=== PATIENT | male | born 1985 | race Caucasian/White ===

== ENCOUNTER 2018-01-04 07:57 | Emergency (ER) | payer BC ==
--- OUTSIDE RECORDS SUMMARY | 2018-01-04 08:14 | XMS REPORT ---
:1985 External Reference #:[id number] Author Organization [facility] 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 Active Onset: 02/15/2017 Dislocations/sprains/strains Genaro Hernandez M.D. Active Family History Date Family Member(s) Problem(s) Comments : (age 56 Father due to Lung Years) Cancer,Type 2 Diabetes,Hepatitus Onset: (age 52 Mother Alive COPD, ASTHMA,ALLERGIES Years) Social History Type Date Description Comments Marital Status Lives With Occupation [employer] Cigarette Use Quit ETOH Use Currently consumes alcohol 5-10 DRINKS PER WEEK Smoking Patient is a former smoker QUIT 5 YEARS AGO Recreational Drug Use Denies Drug Use Daily Caffeine Patient consumes minimal amounts 1 CUP COFFEE PER DAY of caffeine Exercise Type/Frequency Exercises sporadically Allergies, Adverse Reactions, Alerts Date Description Reaction Status Severity Comments 04/19/2016 NKDA active Medications Medication Date Status Form Strength Qnty SIG Indications Ordering Provider Omeprazole 12/[address] 20mg 30cap take 1 K21.9 Gag, s capsule by Jody mouth once a e, MS, day [employer], CNM Hydroxyzine HCL 12/21 Active Tablets 25mg 30tab 1 tabs by R21 s mouth at hs Jody Caution may e, MS, cause [employer], drowsiness CNM Desloratadine 12/21 Active Tablets 5mg 30tab Take one in s morning Jody e, MS, [employer], CNM Ipratropium 02/08 Active Solution 0.5-2.5(3 270ml use every 6 Jamel, [place]/Albuter )mg/3ML hours as MD Milli ol Sulfate needed for shortness of breath. Ibuprofen Active Tablets 200mg 4 po q 8hrs Unknown / prn knee pain Montelukast Active Tablets 10mg 90tab take 1 Gagen, Sodium / s tablet by Jody mouth every e, MS, day [employer], CNM Ventolin HFA Active Aerosol 108(90Bas 54uni use 2 puffs Gag, e) ts every 6 Jody mcg/Act hours as e, MS, needed for [employer], shortness of CNM breath. Symbicort 09/09 Hx Aerosol 160-4.5mc 30.6g 2 Jamel, g/Act m inhalations MD Milli - two times a 12/21 day prn Omeprazole 03/[address] 40mg 90cap take 1 K21.9 s capsule Jody - daily e, MS, 12/21 [employer], CNM Prednisone 02/07 Hx Tablets 10mg 45tab Take 50 mg J45.51 , s on day 1-3 MD Alejandro - and then 04/19 decrease 10 mg every 3 days until completed. Today of 15 days. Flonase Allergy 02/07 Hx Suspension 50mcg/Act 1unit 1 spray to J30.89 Kheti, s both MD Alejandro - nostrils 04/19 Symbicort Hx Aerosol 160-4.5mc 30.6g 2 puff twice Kennedy, /0000 g/Act m a day Zenon White M.D. 09/09 Nebusal 00 Hx Nebulizer 3% as Needed Unknown /0000 Vital Signs Date Vital Result Comment 12/21/2017 BP Systolic Sitting Left Arm 110 mmHg BP Diastolic Sitting Left Arm 72 mmHg Body Temperature 99.0 F Heart Rate 74 /min reg Respiratory Rate 18 /min Height 72 inches 6'0" Weight 235.00 lb BMI (Body Mass Index) 31.9 kg/m2 BSA (Body Surface Area) 2.28 m2 [place] body weight in kilograms 81 O2 % BldC Oximetry 95 % ra 06/15/2017 BP Systolic Sitting Right Arm 130 mmHg BP Diastolic Sitting Right Arm 88 mmHg Heart Rate 71 /min Height 72 inches 6'0" Weight 22.00 lb BMI (Body Mass Index) 3.0 kg/m2 BSA (Body Surface Area) 0.83 m2 [place] body weight in kilograms 81 02/15/2017 BP Systolic Sitting Left Arm 132 mmHg BP Diastolic Sitting Left Arm 85 mmHg Height 72 inches 6'0" Weight 217.00 lb BMI (Body Mass Index) 29.4 kg/m2 BSA (Body Surface Area) 2.21 m2 [place] body weight in kilograms 81 07/19/2016 BP Systolic Sitting Right Arm 128 mmHg BP Diastolic Sitting Right Arm 72 mmHg Heart Rate 90 /min Height 72 inches 6'0" Weight 214.25 lb BMI (Body Mass Index) 29.1 kg/m2 BSA (Body Surface Area) 2.19 m2 [place] body weight in kilograms 81 O2 % BldC Oximetry 97 % 04/19/2016 BP Systolic 122 mmHg BP Diastolic 88 mmHg Heart Rate 80 /min Respiratory Rate 16 /min Height 72 inches 6'0" Weight 219.00 lb BMI (Body Mass Index) 29.7 kg/m2 BSA (Body Surface Area) 2.21 m2 [place] body weight in kilograms 81 O2 % BldC Oximetry 98 % 03/12/2015 BP Systolic Sitting Left Arm 118 mmHg BP Diastolic Sitting Left Arm 80 mmHg Heart Rate 63 /min Height 73 inches 6'1" Weight 218.00 lb BMI (Body Mass Index) 28.8 kg/m2 BSA (Body Surface Area) 2.23 m2 O2 % BldC Oximetry 97 % 02/07/2015 BP Systolic Sitting Left Arm 112 mmHg BP Diastolic Sitting Left Arm 84 mmHg Heart Rate 84 /min Height 71 inches 5'11" Weight 221.00 lb BMI (Body Mass Index) 30.8 kg/m2 BSA (Body Surface Area) 2.20 m2 O2 % BldC Oximetry 97 % Results Test Date Test Result H/L Range Note Comprehensive Metabolic Panel 04/21/2016 Glucose 93 mg/dL 74-106 1 BUN 11 mg/dL 7-18 1 Creatinine 1.0 mg/dL 0.6-1.3 1 Glom Filtration Rate, Estimate >60 mL/min >60 1 If >60 mL/min >60 1, 2 BUN/Creat 11.0 ratio 1 Sodium 145 mmol/L 136-145 1 Potassium 4.1 mmol/L 3.5-5.1 1 Chloride 107 mmol/L 98-107 1 Carbon Dioxide 28 mmol/L 21-32 1 Anion Gap 10 mEq/L 8-16 1 Calcium 8.7 mg/dL 8.5-10.1 1 Total Protein 7.1 g/dL 6.4-8.2 1 Albumin 4.4 g/dL 3.4-5.0 1 Globulin 2.7 g/dL 1.9-4.3 1 Alb/Glob 1.6 ratio 1 Bilirubin,Total 0.6 mg/dL 0.2-1.0 1 Sgot/Ast 17 U/L 15-37 1 SGPT/Alt 40 U/L 12-78 1 Alkaline Phosphatase 60 U/L 45-117 1 CBS W/Automated Diff 04/21/2016 White Blood Count 7.9 K/uL 3.4-10.5 1 Red Blood Count 5.79 M/uL 4.20-5.80 1 Hemoglobin 16.9 gm/dL 12.8-17.0 1 Hematocrit 49.5 % High 38.0-48.0 1 Mean Cell Volume 85.5 fl 80.0-96.0 1 Mean Corpuscular HGB 29.2 pg 27.0-33.0 1 Mean Corpuscular HGB Conc 34.1 g/dL 31.7-36.0 1 Platelet Count 262 K/uL 150-400 1 Red Cell Distri Width SD 40.7 fl 36-51 1 Red Cell Distri Width %CV 13.3 % 11.6-15.8 1 Mean Platelet Volume 10.7 fL High 6.6-10.6 1 Neut% 65.2 % 33.0-73.0 1 Lymph % 24.2 % 20.0-42.0 1 [place] % 8.7 % 0.0-10.0 1 Eo% 1.4 % 0.0-6.6 1 Bas% 0.5 % 0.0-1.1 1 Neut# 5.13 K/uL 1.8-7.0 1 Lymph # 1.90 K/uL 1.0-4.0 1 [place] # 0.68 K/uL 0.0-0.8 1 Eos # 0.11 K/uL 0.0-0.5 1 Baso # 0.04 K/uL 0.0-0.1 1 LDL Cholesterol Profile 04/21/2016 Cholesterol 121 mg/dL <200 1, 3 Triglycerides 37 mg/dL <150 1, 4 HDL Cholesterol 59 mg/dL >40 1, 5 LDL-Cholesterol 55 mg/dL < 100 1, 6 Laboratory test finding 04/21/2016 Slide Review . 1, 7 Allergens,Zone 1 02/07/2015 mRast Class (Text Only) See Note 8 D Pteronyssinus 0.39 ClassIkU/L High D Farinae Mite 0.38 ClassIkU/L High Cat Hair/Dander 6.58 ClassIVkU/L High Dog Hair/Dander 1.26 ClassIIkU/L High Blue[place] <0.10 Iezkw2kK/L B[place] Grass <0.10 Nfxqc1uB/L [place] Grass 0.10 Class0/IkU/L High Cockroach,Nepalese 0.20 Class0/IkU/L High Penicillium Not <0.10 Yrakx6xH/L Cladosporium Herbarum <0.10 Rxqfg5cS/L Apergillis Fumigatus Ige <0.10 Ddhza8lO/L Mucor Racemosus <0.10 Uglbw4oO/L Alternaria Tenuis 0.87 ClassIIkU/L High Stemphylium Bot <0.10 Wbaoc0qU/L Birch,White <0.10 Wmfcf7sC/L [place],White <0.10 Khhpu6pQ/L Elm,Nepalese (White) <0.10 Sfzhx9xL/L Skip,White <0.10 Dzuwy4nS/L Hazelnut Tree <0.10 Wqxbr4nM/L [place],White <0.10 Qxady9iC/L Rozel,White <0.10 Wavij2pW/L Leopold,[place] <0.10 Zdhob1xU/L Ragweed,Short/ <0.10 Kaire1lH/L Mugwort <0.10 Krjqg6iG/L Plantain,Urdu 0.11 Class0/IkU/L High Pigweed,Rough <0.10 Nsorr0kQ/L Sheep [place] (DO <0.10 Jwmvo2nL/L Nettle <0.10 Yewpl5aT/L Maple/Fowler Ige T001 <0.10 Jjgvx5tE/L 9 Laboratory test finding 02/07/2015 Immunoglobulin E,Total 96 IU/mL 0-100 10 1 K21.9 Z00.00 J45.50 J30.89 2 Note: Persistent reduction for 3 months or more in an eGFR <60 mL/min/1.73 m2 defines CKD. Patients with eGFR values >/=60 mL/min/1.73 m2 may also have CKD if evidence of persistent proteinuria is present. The original MDRD equation for estimated GFR is not valid for patients less than 18 years of age. Additional information may be found at www.kdoqi.org. 3 Reference Guidelines*: Desirable: ........... < 200 mg/dL Borderline High: ..... 200-239 mg/dL High: ................ >=240 mg/dL * The National Cholesterol Education Program (NCEP) 4 Reference Guidelines*: Normal: ............. < 150 mg/dL Borderline High: .... 150-199 mg/dL High: ............... 200-499 mg/dL Very High: .......... > 500 mg/dL * Source: National Cholesterol Education Program (NCEP) 5 Reference Guidelines*: Low HDL: ..... < 40 mg/dL Normal: ..... 40-60 mg/dL Desirable: ... > 60 mg/dL *The National Cholesterol Education Program(NCEP) 6 Reference Guidelines*: Optimal:........... <100 mg/dL Near Optimal....... 100-129 mg/dL Borderline High.... 130-159 mg/dL High............... 160-189 mg/dL Very High.......... >=190 mg/dL * Source: National Cholesterol Education Program (NCEP) 7 Instrument flagged sample for slide review. Less than 10% Bands seen, no other immature WBC's seen. RBC morphology essentially normal. Platelet estimate=NORMAL 8 Levels of Specific IgE Class Description of Class ----- < 0.10 0 Negative 0.10 - 0.31 0/I Equivocal/Low 0.32 - 0.55 I Low 0.56 - 1.40 II Moderate 1.41 - 3.90 III High 3.91 - 19.00 IV Very High 19.01 - 100.00 V Very High >100.00 Very High 9 Performed at: - [facility] [id number] Refractory Tile Helper: Maico Sherwood MD, Phone: [phone] Performed at: - [facility] [id number] Refractory Tile Helper: Thelma Negron MD, Phone: [phone] Test(s) [id number]-AyF Cockroach, Nepalese; 863313- N986-FfX [place] were developed and had performance characteristics determined by [facility]. These tests have not been cleared or approved by the U.S. Food and Drug Administration. The FDA has determined that such clearance or approval is not necessary. These tests are used for clinical purposes. These should not be regarded as investigational or for research. Procedures Date CPT Code Description Status 02/20/2015 12486 Bronchospasm Provocation Evaluation Multi Spirometric Completed Determinati 02/20/2015 16533 Spirometry Completed Encounters Type Date Location Provider CPT E/M Dx Office Visit 06/15/2017 Primary Care Office Genaro Hernandez, 29120 M25.561 10:00a M.D. Office Visit 02/15/2017 Primary Care Office Genaro Hernandez, [address] S39.012A 3:00p M.D. Office Visit 07/19/2016 [place] [address] G47.33 11:20a Office Visit 04/19/2016 [place] [address] J45.50 2:40p K21.9 J30.89 Office Visit 03/12/2015 2:00p [place] [address] J45.50 J30.89 K21.9 Office Visit 02/07/2015 2:45p [place] [address] J45.51 J30.89 Plan of Care Future Appointment(s):02/01/2018 2:00 pm - Alejandro Ceja MD at [facility]/17 /2018 - Mague Nunez, , [employer], CNMJ45.909 Unspecified asthma, uncomplicatedComments:Referral to Dr Ceja, using albuterol twice a day.I counseled Patient on need for daily anti-inflammatory drug (ICS).R21 Rash and other nonspecific skin eruptionNew Medication:Hydroxyzine HCL 25 mgComments:-- To take desloratadine (Clarinex) in am and hydroxyzine at hs. To trial medication differential diagnosis of acute urticaria-- Report worsening symptoms--Take a picture of rash when oghamwcK17.9 Gastro-esophageal reflux disease without esophagitisNew Medication:Omeprazole 20 mgComments:-- Patient want to try and discontinue PPI. I advised Patient to decrease first and see how he does with decreased doseAllFollow up:REferral to DR Ceja for SOB, wheezing
[2018-01-04 08:25] VITALS: BP 128/82
--- NOTE | 2018-01-04 08:27 | UC ---
Skin Complaint HPI - HPI Summary HPI Summary: Patient presents to urgent care with rash all over his body. Patient states he' s had it for 2-1/2 weeks. Patient states. Pruritic. Patient states he saw his primary who put him on Claritin and hydroxyzine with little improvement. Patient states they come and go. Patient states that worse today than they've been. Patient states she's been progressively getting more spots. Patient denies any shortness of breath. Patient has no trouble breathing. Patient denies any intraoral swelling. Patient without fevers/chills. Patient without any nausea vomiting. Patient does have 11 day old infant at home. Nobody else at home with similar lesions. Patient denies any changes to products or foods. 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 Patient's medications reviewed this visit - History of Current Complaint Chief Complaint: UCSkin Time Seen by Provider: 01/04/18 08:27 Stated Complaint: SKIN COMPLAINT Hx Obtained From: Patient Timing: Intermittent Episodes Lasting: Onset Severity: Moderate Current Severity: Moderate Pain Intensity: 0 - Allergy/Home Medications Allergies/Adverse Reactions: Allergies Allergy/AdvReac Type Severity Reaction Status Date / Time No Known Allergies Allergy Verified 01/04/18 08:19 Home Medications: Home Medications Albuterol HFA INHALER* [Ventolin HFA Inhaler*] 2 puff INH Q4H PRN 01/04/18 [ History Confirmed 01/04/18] Desloratidine (NF) [Clarinex (NF)] 5 mg PO DAILY 01/04/18 [History Confirmed ] Montelukast Sodium TAB* [Singulair TAB*] 10 mg PO DAILY 01/04/18 [History Confirmed 01/04/18] Omeprazole CAP* [Prilosec CAP* 20 MG] 20 mg PO DAILY 01/04/18 [History Confirmed 01/04/18] hydrOXYzine HCL TAB* [Atarax 25 MG TAB*] 25 mg PO TID PRN 01/04/18 [History Confirmed 01/04/18] Review of Systems Constitutional: Negative Skin: Rash All Other Systems Reviewed And Are Negative: Yes PMH/Surg Hx/FS Hx/Imm Hx Previously Healthy: Yes - Surgical History Surgical History: Yes Surgery Procedure, Year, and Place: appendectomy - Family History Known Family History: Positive: Other - noncontributory - Social History Occupation: Employed Full-time Lives: With Family Alcohol Use: Weekly Substance Use Type: None Smoking Status (MU): Never Smoked Tobacco Physical Exam - Summary Physical Exam Summary: Vital Signs Reviewed: Yes A+Ox3, no distress Eyes: Conjunctiva Clear, DESTINEE, EOM intact and full ENT: Hearing grossly normal, TM x2 clear. mmmoist no exudate, uvula midline,non intraoral edema neck: supple Respiratory: Positive: No respiratory distress, No accessory muscle use CTA throughout no w/r Cardiovascular: skin color reflect adequate perfusion RRR nl s1 s2 no m/r Abd: soft +BS no guarding, no rebound Musculoskeletal Exam: VARELA x 4 without difficulty Neurological: Positive: Alert, ambulatory without difficulty Psychological: Positive: Normal Response To Family Skin: Positive: Pt with multiple raised (> 100) maculopapular lesions on erythematous, pruritic, lesions diffuse Triage Information Reviewed: Yes Vital Signs: Initial Vital Signs Temp 97.9 F 01/04/18 08:11 Pulse 70 01/04/18 08:11 Resp 16 01/04/18 08:11 BP 128/82 01/04/18 08:11 Pulse Ox 99 01/04/18 08:11 Course/Dx - Course Course Of Treatment: Pt presents to with ongoing, progressive wax/wane pruritic rash diffuse body. Pt states saw pcp -placed Naproxyn, Claritin without relief. Pt denies new products / food. No other complaints. no viruses. Spoke with Dr. Roach office - pt scheduled dermatology appt 10:40pm today in [place]. Pt comfortable and in agreement with plan - Diagnoses Provider Diagnoses: rash Discharge - Sign-Out/Discharge Documenting (check all that apply): Patient Departure All imaging exams completed and their final reports reviewed: No Studies - Discharge Plan Condition: Stable Disposition: HOME Patient Education Materials: Acute Rash (ED) Referrals: Alyce Romeo MD [Medical Doctor] - ([facility] D[facility] [address] [place] [address] - [facility] [address] [place] [address] 10:40pm TODAY 01/04/2018) Milli Mccullough MD [Primary Care Provider] - Additional Instructions: - you have an appointment with a director vaccine scheduled TODAY at 10:40am - Please arrive at 10:30am Please bring your insurance card and a photo ID If you develop difficulty breathing, facial swelling, trouble swallowing or any other concerns please call 911 or go to the emergency department - Billing Disposition and Condition Condition: STABLE Disposition: Home
== END 2018-01-04 08:44 | disposition home or self-care (01) ==
LOC: UCCORT 07:57
DX: R21 Rash and other nonspecific skin eruption (principal); L29.9 Pruritus, unspecified
CPT/HCPCS: 99201; G0463

== ENCOUNTER 2018-05-19 08:31 | Emergency (ER) | payer BC ==
[2018-05-19 08:42] VITALS: BP 126/79
--- NOTE | 2018-05-19 08:57 | UC ---
Throat Pain/Nasal Wong HPI - HPI Summary HPI Summary: cough x 4 days nasal congestion , pnd, sore throat, no fever , + chills, body aches - History of Current Complaint Chief Complaint: UCRespiratory Stated Complaint: FLU SX'S Time Seen by Provider: 05/19/18 08:51 Hx Obtained From: Patient Onset/Duration: Gradual Onset, Lasting Days - 4, Still Present Severity: Moderate Pain Intensity: 0 Cough: Nonproductive Associated Signs & Symptoms: Positive: Wheezing, Sinus Discomfort, Nasal Discharge. Negative: Dysphagia, FB Sensation, Drooling, Hoarseness, Fever, Vomiting, Rash - Allergies/Home Medications Allergies/Adverse Reactions: Allergies Allergy/AdvReac Type Severity Reaction Status Date / Time No Known Allergies Allergy Verified 05/19/18 08:40 PMH/Surg Hx/FS Hx/Imm Hx Respiratory History: Asthma - Surgical History Surgical History: Yes Surgery Procedure, Year, and Place: appendectomy. ear tubes as child - Family History Known Family History: Positive: Other - noncontributory Negative: Diabetes - Social History Alcohol Use: Weekly Substance Use Type: None Smoking Status (MU): Never Smoked Tobacco Review of Systems All Other Systems Reviewed And Are Negative: Yes Constitutional: Positive: Chills, Fatigue Skin: Positive: Negative Eyes: Positive: Negative ENT: Positive: Sore Throat, Nasal Discharge Respiratory: Positive: Cough Cardiovascular: Positive: Negative Is Patient Immunocompromised?: No Physical Exam Triage Information Reviewed: Yes Appearance: Well-Appearing, No Pain Distress, Well-Nourished Vital Signs: Initial Vital Signs Temp 99.3 F 05/19/18 08:40 Pulse 90 05/19/18 08:40 Resp 16 05/19/18 08:40 BP 126/79 05/19/18 08:40 Pulse Ox 97 05/19/18 08:40 Vital Signs Reviewed: Yes Eye Exam: Normal Eyes: Positive: Conjunctiva Clear ENT: Positive: Normal ENT inspection, Hearing grossly normal, Pharyngeal erythema, Nasal drainage, TMs normal Neck: Positive: Supple, Nontender, No Lymphadenopathy Respiratory: Positive: Chest non-tender, Wheezing Cardiovascular: Positive: RRR, No Murmur, Pulses Normal Abdominal Exam: Normal Skin Exam: Normal Throat Pain/Nasal Course/Dx - Differential Dx/Diagnosis Provider Diagnosis: URI (upper respiratory infection) Discharge - Sign-Out/Discharge Documenting (check all that apply): Patient Departure All imaging exams completed and their final reports reviewed: No Studies - Discharge Plan Condition: Stable Disposition: HOME Patient Education Materials: Upper Respiratory Infection (DC) Referrals: Milli Mccullough MD [Primary Care Provider] - If Needed - Billing Disposition and Condition Condition: STABLE Disposition: Home
== END 2018-05-19 09:05 | disposition home or self-care (01) ==
LOC: UCCORT 08:31
DX: J06.9 Acute upper respiratory infection, unspecified (principal)
CPT/HCPCS: 99211; G0463

== ENCOUNTER 2019-01-31 09:26 | Emergency (ER) | payer BC ==
--- OUTSIDE RECORDS SUMMARY | 2019-01-31 09:47 | XMS REPORT | Continuity of Care Document ---
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 Onset: 02/15/2017 Knee pain Genaro Hernandez M.D. Onset: 06/15/2017 Allergic rhinitis Dexter Alvarez MD Onset: 12/07/2018 Gastroesophageal reflux disease Dexter Alvarez MD Onset: 12/07/2018 Social History Type Date Description Comments Sex Unknown Tobacco Use Start: Unknown End: Quit Unknown Smoking Status Reviewed: 12/07/18 Quit ETOH Use Currently consumes 5-10 DRINKS PER alcohol WEEK Tobacco Use Start: Unknown End: Patient is a former QUIT 5 YEARS AGO Unknown smoker Recreational Drug Use Denies Drug Use Exercise Type/Frequency Exercises sporadically Allergies, Adverse Reactions, Alerts Description No Known Drug Allergies Medications Active Medications SIG Qnty Indications Ordering Provider Date Omeprazole take 1 capsule by 90caps K21.9 Dexter Alvarez MD 12/21/2017 20mg mouth once a day Capsules DR Ipratropium use every 6 hours 270ml Milli Mccullough MD 02/09/2016 [place]/Albuterol as needed for Sulfate shortness of breath. 0.5-2.5(3)mg/3ML Solution Montelukast Sodium take 1 tablet by 90tabs Dexter Alvarez MD mouth every day 10mg Tablets Ventolin HFA use 2 puffs every 8gm Dexter Alvarez MD 6 hours as needed 108(90Base) mcg/Act for shortness of Aerosol breath Immunizations Description No Information Available Vital Signs Date Vital Result Comment 12/07/2018 11:00am BP Systolic 130 mmHg BP Diastolic 79 mmHg Body Temperature 97.4 F Heart Rate 81 /min Respiratory Rate 18 /min Height 72 inches 6'0" Weight 231.12 lb BMI (Body Mass Index) 31.3 kg/m2 BSA (Body Surface Area) 2.27 m2 Blanket body weight in kilograms 81 kg O2 % BldC Oximetry 96 % Ra 12/21/2017 10:35am BP Systolic Sitting Left Arm 110 mmHg BP Diastolic Sitting Left Arm 72 mmHg Body Temperature 99.0 F Heart Rate 74 /min reg Respiratory Rate 18 /min Height 72 inches 6'0" Weight 235.00 lb BMI (Body Mass Index) 31.9 kg/m2 BSA (Body Surface Area) 2.28 m2 [place] body weight in kilograms 81 kg O2 % BldC Oximetry 95 % ra Results Description No Information Available Procedures Description No Information Available Medical Devices Description No Information Available Encounters Description No Information Available Assessments Date Code Description Provider 12/07/2018 J45.909 Unspecified asthma, uncomplicated Dexter Alvarez MD 12/07/2018 K21.9 Gastro-esophageal reflux disease without Dexter Alvarez MD esophagitis 12/07/2018 Z79.899 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 therapy Dexter Alvarez MD 12/07/2018 Z00.00 Encounter for general adult medical examination Dexter Alvarez MD without abnormal findings Plan of Treatment 12/07/2018 - Dexter Alvarez MDJ45.909 Unspecified asthma, zfitllbnfcxgtB56.9 Gastro-esophageal reflux disease without vubrggzjujcU10.899 Other long-term ( current) drug therapyNew Labs:Comprehensive Metabolic Panel, Ordered: Glycohemoglobin A1c, Ordered: 12/07/18LDL Cholesterol Profile, Ordered: TSH Reflex FT4 And/Or FT3, Ordered: 12/07/18Magnesium, Ordered: Z00.00 Encounter for general adult medical examination without abnormal findings Functional Status Description No Information Available Mental Status Description No Information Available Referrals Description No Information Available
[2019-01-31 09:54] VITALS: BP 130/78
--- NOTE | 2019-01-31 10:14 | UC ---
Throat Pain/Nasal Wong HPI - HPI Summary HPI Summary: 33-year-old male who has had cold symptoms and head congestion over the past 8 days with worsening symptoms and sinus pressure today. He does have a productive cough of yellow sputum. He is a nonsmoker, did get a flu shot - History of Current Complaint Chief Complaint: UCRespiratory Stated Complaint: COUGH,RUNNY NOSE,SINUS PRESSURE Time Seen by Provider: 01/31/19 10:04 Hx Obtained From: Patient Onset/Duration: Gradual Onset Severity: Moderate Pain Intensity: 4 Cough: Productive - Productive cough of yellow sputum. Associated Signs & Symptoms: Positive: Sinus Discomfort, Nasal Discharge - Allergies/Home Medications Allergies/Adverse Reactions: Allergies Allergy/AdvReac Type Severity Reaction Status Date / Time No Known Allergies Allergy Verified 01/31/19 09:48 Home Medications: Home Medications D-Methorphan/PE/Acetaminophen [Daytime Cold Multi-Symp Gelcap] 2 each PO ONCE PRN 01/31/19 [History Confirmed 01/31/19] PMH/Surg Hx/FS Hx/Imm Hx Previously Healthy: Yes Respiratory History: Asthma GI/ History: Gastroesophageal Reflux - Surgical History Surgical History: Yes Surgery Procedure, Year, and Place: appendectomy. ear tubes as child - Family History Known Family History: Positive: Other - noncontributory Negative: Diabetes - Social History Occupation: Employed Full-time Lives: With Family Alcohol Use: Weekly Substance Use Type: None Smoking Status (MU): Current Every Day Smoker Type: Smokeless Tobacco Amount Used/How Often: 1 can weekly Review of Systems All Other Systems Reviewed And Are Negative: Yes ENT: Positive: Nasal Discharge, Sinus Congestion, Sinus Pain/Tenderness Respiratory: Positive: Cough - Occasional productive cough of yellow sputum. Is Patient Immunocompromised?: No Physical Exam Triage Information Reviewed: Yes Appearance: Well-Appearing, No Pain Distress, Well-Nourished Vital Signs: Initial Vital Signs Temp 97 F 01/31/19 09:50 Pulse 91 01/31/19 09:50 Resp 16 01/31/19 09:50 BP 130/78 01/31/19 09:50 Pulse Ox 97 01/31/19 09:50 Vital Signs Reviewed: Yes Eyes: Positive: Conjunctiva Clear ENT: Positive: Pharynx normal - Yellow purulent postnasal drainage., Nasal congestion, Nasal drainage - Yellow purulent nasal coryza, turbinates inflamed. , TMs normal, Sinus tenderness - Tender over the maxillary and frontal sinuses bilaterally., Uvula midline Neck: Positive: Supple, Nontender, No Lymphadenopathy Respiratory: Positive: Lungs clear, Normal breath sounds, No respiratory distress, No accessory muscle use Cardiovascular: Positive: RRR, No Murmur, Pulses Normal, Brisk Capillary Refill Musculoskeletal: Positive: Strength Intact, ROM Intact Neurological: Positive: Alert, Muscle Tone Normal Psychological Exam: Normal Skin Exam: Normal Throat Pain/Nasal Course/Dx - Course Course Of Treatment: Patient is comfortable here. He can continue [id number] cold medicines. He did not want a day off of work today. - Differential Dx/Diagnosis Provider Diagnosis: Sinusitis Discharge ED - Sign-Out/Discharge Documenting (check all that apply): Patient Departure All imaging exams completed and their final reports reviewed: No Studies - Discharge Plan Condition: Fair Disposition: HOME Prescriptions: Amoxicillin/Clavulanate TAB* [Augmentin TAB 875*] 875 mg PO BID 10 Days #20 tab Patient Education Materials: Sinusitis (ED) Referrals: Dexter Alvarez MD [Primary Care Provider] - Additional Instructions: Increase fluids, [id number] cold medicine as directed. Take the Augmentin twice a day with food. Follow-up with your primary care provider next week if no improvement. - Billing Disposition and Condition Condition: FAIR Disposition: Home
== END 2019-01-31 10:18 | disposition home or self-care (01) ==
LOC: UCCORT 09:26
DX: J32.9 Chronic sinusitis, unspecified (principal); R05 Cough; J45.909 Unspecified asthma, uncomplicated; F17.290 Nicotine dependence, other tobacco product, uncomplicated
CPT/HCPCS: 99212; G0463